=== PATIENT | female | born 1985 | race African-American/Black ===

== ENCOUNTER 2021-06-18 11:11 | Emergency (ER) | payer BC, OTHER ==
[2021-06-18] MEDS ORDERED: Bacitracin 1 PK ONE (11:57)
[2021-06-18] MEDS ORDERED: Boostrix 0.5 ML (Tdap) VIAL ONE (11:58)
== END 2021-06-18 12:45 | disposition home or self-care (01) ==
LOC: CSHERS 11:11
DX: S41.151A Open bite of right upper arm, initial encounter (principal); J45.909 Unspecified asthma, uncomplicated; F17.210 Nicotine dependence, cigarettes, uncomplicated; W55.01XA Bitten by cat, initial encounter; Z23 Encounter for immunization
CPT/HCPCS: 90471; 90715